=== PATIENT | male | born 1960 | race Caucasian/White ===

== ENCOUNTER 2017-03-29 05:41 | Outpatient (CLI) | payer MEDICARE ==
[~2017-03-29] VITALS: Ht 182.9 cm; Wt 74.4 kg
[~2017-03-29 05:41] MED LIST: ALPR0.5T PO; BUDE180A IH; CSPT25 OU; HYDR-3816 PO; LTN005OP2 OU; QUET300T PO; QUET400T PO; RSP1T PO; RT-ALBUINH IH; ZOLP10TA PO
[2017-03-29] MEDS ORDERED: LISI10TA2 PO (13:09)
== END 2017-03-29 13:12 ==
LOC: PREOP 05:41
PROVIDERS: ATTEND Surgery
DX: Z01.818 Encounter for other preprocedural examination (principal); Z86.010 Personal history of colon polyps